=== PATIENT | male | born 1990 | race Caucasian/White ===

== ENCOUNTER 2016-10-12 01:33 | Emergency (ER) | payer BC ==
[~2016-10-12] VITALS: Ht 180.3 cm; Wt 93.0 kg
[2016-10-12 01:43] VITALS: BP 145/79
== END 2016-10-12 02:30 | disposition left against medical advice (07) ==
LOC: M ED 02:09
DX: Z53.21 Procedure and treatment not carried out due to patient leaving prior to being seen by health care provider (principal)

== ENCOUNTER → 2020-10-19 | Outpatient (REF) | payer BC | LOC: M SMT 12:53 | PROVIDERS: ATTEND Urology | DX: Z30.2 Encounter for sterilization (principal) ==

== ENCOUNTER → 2020-12-17 | Outpatient (REF) | payer BC ==
[2020-12-17 13:15] LABS: SEMEN APPEARANCE OPAQUE (OPAQUE); SEMEN VISCOSITY LIQUID (LIQUID); SEMEN VOLUME 2.5 ml (2.0-5.0); WBC CONCENTRATION <=1 M/ml (<=1 M/ml)
== END ==
LOC: M SMT 12:55
PROVIDERS: ATTEND Urology
DX: Z30.8 Encounter for other contraceptive management (principal)

== ENCOUNTER → 2023-08-19 | Outpatient (CLI) | payer BC | LOC: M WUC 09:27 | PROVIDERS: ATTEND Nurse Practitioner Family | DX: S82.62XA Displaced fracture of lateral malleolus of left fibula, initial encounter for closed fracture (principal); M25.472 Effusion, left ankle; Y92.9 Unspecified place or not applicable; Y93.9 Activity, unspecified; Y99.9 Unspecified external cause status ==